=== PATIENT | female | born 1990 | race Hispanic/Latino ===

== ENCOUNTER 2022-08-12 17:55 | Observation (INO) | payer MEDICAID ==
[~2022-08-12] VITALS: Ht 165.1 cm; Wt 80.7 kg
[2022-08-12] MEDS ORDERED: LACTATED RINGERS 1000ML 1,000 ML IV ONE (18:28)
[2022-08-12] MEDS ORDERED: LACTATED RINGERS 1000ML 1,000 ML IV PRN (18:30)
[2022-08-12 18:48] LABS: HEMATOCRIT 33.9 % (36-48); MEAN CORPUSCULAR HEMOGLOBIN 24.2 pg (27.0-33.0); MEAN CORPUSCULAR HGB CONC 31.3 g/dL (32.0-36.0); MEAN CORPUSCULAR VOLUME 77.4 fL (79-99); PLATELET COUNT (AUTO) 210 K/uL (130-400); RED BLOOD CELL COUNT(AUTO) 4.38 MIL/uL (4.00-5.50); RED CELL DISTRIBUTION WIDTH 19.1 % (11.0-15.5); WHITE BLOOD COUNT (AUTO) 6.6 K/uL (4.8-10.8)
[2022-08-12 19:03] LABS: APPEARANCE,URINE CLOUDY (CLEAR); BILIRUBIN,URINE NEGATIVE (NEGATIVE); COLOR,URINE YELLOW (YELLOW); GLUCOSE, URINE (UA) NEGATIVE (NEGATIVE); KETONES,URINE NEGATIVE (NEGATIVE); LEUKOCYTE ESTERASE ,URINE 500 Leu/uL (NEGATIVE); NITRATE,URINE NEGATIVE (NEGATIVE); PROTEIN,URINE 70 mg/dL (NEGATIVE); UROBILINOGEN,URINE 0.2 mg/dL (0.2-1.0)
[2022-08-12 19:09] LABS: AMPHET/METH SCREEN,URINE NEGATIVE (NEGATIVE); BARBITURATE SCREEN, URINE NEGATIVE (NEGATIVE); BENZODIAZEPINES SCREEN,URINE NEGATIVE (NEGATIVE); CANNABINOID SCREEN,URINE POSITIVE (NEGATIVE); COCAINE SCREEN,URINE NEGATIVE (NEGATIVE); OPIATE SCREEN,URINE NEGATIVE (NEGATIVE); PHENCYCLIDINE SCREEN,URINE NEGATIVE (NEGATIVE)
[2022-08-12 19:48] LABS: BACTERIA,URINE RARE /HPF (None Seen); MUCUS,URINE RARE LPF (None Seen); SQUAMOUS EPITHELIAL CELL,UR RARE /HPF (0-2); WBC,URINE 51-100 /HPF (0-1)
[2022-08-12] MEDS ORDERED: MACR100 PO (20:12)
[2022-08-12] MEDS ORDERED: FERR-82 PO (20:12)
[2022-08-12] MEDS ORDERED: PREN1TAB80 PO (20:12)
[2022-08-12 20:14] VITALS: BP 137/87
[2022-08-12] MEDS ORDERED: CEFTRIAXONE 1G VIAL IVP ONE (20:30)
[2022-08-12] MEDS ORDERED: MAGNESIUM HYDROXIDE 30 ML/UDCUP PO SCH (21:00)
[2022-08-12] MEDS ORDERED: LACTATED RINGERS 1000ML IV SCH (21:00)
[2022-08-12] MEDS ORDERED: ACETAMINOPHEN 325 MG TAB PO ONE (21:30)
[2022-08-13 04:12] LABS: RAPID PLASMA REAGIN NONREACTIVE (NONREACTIVE)
== END 2022-08-12 22:10 | disposition home or self-care (01) ==
LOC: LDH 17:55
PROVIDERS: ADMIT Obstetrics & Gynecology; ATTEND Obstetrics & Gynecology
DX: O98.53 Other viral diseases complicating the puerperium (principal); U07.1 COVID-19; O26.893 Other specified pregnancy related conditions, third trimester; R10.30 Lower abdominal pain, unspecified; R10.2 Pelvic and perineal pain; K59.00 Constipation, unspecified; O42.913 Preterm premature rupture of membranes, unspecified as to length of time between rupture and onset of labor, third trimester; Z98.891 History of uterine scar from previous surgery; Z3A.36 36 weeks gestation of pregnancy
CPT/HCPCS: 96374; 96361; 59025; 80305; 85027; 86592; 86850; 86900; 86901; 87077; 87088; 87186; 87804 ×2; 87340; 86701; 87390; 81001; 36415; 87635; G0378 ×3; J7120 ×2; J0696; 96360